=== PATIENT | female | born 1970 | race Caucasian/White ===

== ENCOUNTER 2016-11-27 12:49 | Outpatient (CLI) | payer BC ==
--- NOTE | 2016-12-06 16:21 | Mammography Report ---
DIGITAL SCREENING MAMMOGRAM: 11/27/2016 CLINICAL INDICATION: A 45-year-old with history of late childbearing for screening. COMPARISON: 09/2013 TECHNIQUE: Routine CC and MLO projections as well as bilateral laterally exaggerated craniocaudal vi ews were obtained of the breasts. FINDINGS: Parenchymal tissue within both breasts is heterogeneously dense, which may lower the sensi tivity of mammography; however, there are no dominant masses, suspicious microcalcifications, or seco ndary signs of malignancy. In comparison to the previous studies, there are no significant changes. ASSESSMENT: NO MAMMOGRAPHIC EVIDENCE OF MALIGNANCY. NO SIGNIFICANT INTERVAL CHANGES. RECOMMENDATION: Screening mammography is recommended annually. BIRADS category 1 - negative. STANDARD QUALIFYING STATEMENTS 1. This examination was reviewed with the aid of Computed-Aided Detection (CAD). 2. A negative or benign imaging report should not delay biopsy if clinically suspicious findings are present. Consider surgical consultation if warranted. More than 5% of cancers are not identified b y imaging. 3. Dense breasts may obscure an underlying neoplasm. JOB #: [id number] EXT JOB #:[id number]
== END 2016-11-27 12:50 | disposition home or self-care (01) ==
LOC: DI 12:49
PROVIDERS: ATTEND Family Medicine
DX: Z12.31 Encounter for screening mammogram for malignant neoplasm of breast (principal)
CPT/HCPCS: 77067

== ENCOUNTER 2018-01-10 11:00 | Outpatient (CLI) | payer BC ==
--- NOTE | 2018-01-10 16:52 | XRAY Report ---
Procedure Date: 01/10/2018 Accession Number: [id number] / [id number] Procedure: XR - Ankle 3 View LT CPT Code: FULL RESULT: EXAM: Ankle 3 View LT DATE: 01/10/2018 11:21 AM CLINICAL HISTORY: L ANKLE /FOOT PAIN..INJURY COMPARISON: None. TECHNIQUE: 3 views. FINDINGS: Bones: Normal. No fractures or bone lesions. Joints: Normal. No tibiotalar joint effusion. No subluxations. The ankle mortise is symmetric. Soft Tissues: Normal. No soft tissue swelling. IMPRESSION: Normal ankle radiography. RADIA
--- NOTE | 2018-01-10 17:00 | XRAY Report ---
Procedure Date: 01/10/2018 Accession Number: [id number] / [id number] Procedure: XR - Foot 3 View LT CPT Code: FULL RESULT: EXAM: Foot 3 View LT DATE: 01/10/2018 11:06 AM CLINICAL HISTORY: L ANKLE /FOOT PAIN..INJURY COMPARISON: None. TECHNIQUE: 3 views. FINDINGS: Bones: Somewhat well corticated bone fragment superior to the proximal margin of the navicular in conjunction with questionable cortical irregularity of the proximal navicular seen on the oblique view only is felt to represent os supra naviculare but should be correlated to point tenderness in this region given history of ankle and foot pain. Otherwise, there is no fracture or dislocation and soft tissues are unremarkable. IMPRESSION: No definite acute fracture or dislocation. Recommend palpation of the dorsum of the foot at the talonavicular interval for focal point tenderness as described. RADIA
== END 2018-01-10 11:01 | disposition home or self-care (01) ==
LOC: DI 11:00
PROVIDERS: ATTEND Nurse Practitioner Family
DX: S99.912A Unspecified injury of left ankle, initial encounter (principal)

== ENCOUNTER 2018-07-31 09:57 | Outpatient (CLI) | payer BC ==
--- NOTE | 2018-07-31 12:45 | XRAY Report ---
Reason: Pain in left heel Procedure Date: 07/31/2018 Accession Number: [id number] / [id number] Procedure: XR - Foot 3 View LT CPT Code: FULL RESULT: EXAM: LEFT FOOT RADIOGRAPHY EXAM DATE: 07/31/2018 10:32 AM. CLINICAL HISTORY: Pain in left heel. COMPARISON: FOOT 3 VIEW LT 01/10/2018 11:13 AM. TECHNIQUE: 3 views. FINDINGS: Bones: Normal. No fractures or bone lesions. No significant calcaneal spurring. Joints: Normal. No subluxations. Soft Tissues: Nonspecific soft tissue swelling adjacent to the fifth MTP joint similar to the prior exam. No appreciable abnormalities of the soft tissues of the heel. IMPRESSION: Normal foot radiography. RADIA
== END 2018-07-31 09:58 | disposition home or self-care (01) ==
LOC: DI 09:57
PROVIDERS: ATTEND Nurse Practitioner Family
DX: M79.672 Pain in left foot (principal)

== ENCOUNTER 2019-06-30 08:04 | Outpatient (CLI) | payer BC ==
--- NOTE | 2019-07-01 13:08 | Mammography Report ---
Reason: ROUTINE MAMMO Procedure Date: 06/30/2019 Accession Number: [id number] / [id number] Procedure: LIAT - Screening Mammo w/Alexander CPT Code: Final Report FULL RESULT: EXAM: Screening Mammo w/Alexander DATE: 06/30/2019 8:53 AM CLINICAL HISTORY: The patient is an asymptomatic 45-year-old female. Late childbearing. No reported personal nor family history of breast cancer. TECHNIQUE: (B) - Bilateral CC, laterally exaggerated CC, MLO views were obtained. Note: Positioning is limited by patient tolerance. COMPARISON: 11/27/2016 10/12/2013 PARENCHYMAL PATTERN: (D) - The breasts demonstrate heterogeneously dense fibroglandular parenchyma bilaterally. FINDINGS: The pattern of asymmetry is stable given positional differences. There are no suspicious masses, calcifications, or areas of distortion. IMPRESSION: Negative examination. BI-RADS category 1. RECOMMENDATION: (ANNUAL) - Recommend routine annual screening mammography. BI-RADS CATEGORY: (1) - Negative. STANDARD QUALIFYING STATEMENTS: A negative or benign imaging report should not preclude biopsy if clinically suspicious findings are present. Dense breasts may obscure an underlying neoplasm. This examination was reviewed with the aid of 3D breast imaging (tomosynthesis).
== END 2019-06-30 08:05 | disposition home or self-care (01) ==
LOC: DI 08:04
PROVIDERS: ATTEND Family Medicine
DX: Z12.31 Encounter for screening mammogram for malignant neoplasm of breast (principal)
CPT/HCPCS: 77063; 77067

== ENCOUNTER 2019-12-14 07:59 | Outpatient (CLI) | payer BC ==
--- NOTE | 2019-12-14 10:02 | CT Report ---
PROCEDURE: Sinuses INDICATIONS: HEADACHE TECHNIQUE: Noncontrast 3.0 mm axial images acquired from the frontal sinuses to the mid-sella, with coronal and sagittal reformats. For radiation dose reduction, the following was used: automated exposure control , adjustment of mA and/or kV according to patient size. COMPARISON: None. FINDINGS: Image quality: Excellent. Sinuses: There is minimal bilateral scattered maxillary, frontal and sphenoid mucosal thickening. Ve ry minimal ethmoid mucosal thickening is present. Ostiomeatal Complexes: Ostiomeatal complexes are patent. Miscellaneous: Visualized intra-orbital contents are normal. There is aeration of the vertical conch a of the left middle turbinate. The left middle and inferior turbinates are mildly hypertrophied comp ared to the right of uncertain clinical significance. No paradoxical turbinates are identified. No na nan septal deviation. IMPRESSION: 1. Minimal scattered mucosal thickening as above. 2. Ostiomeatal complexes are patent. Reviewed by: Dinora Workman MD on 12/14/2019 10:00 AM PDT Approved by: Dinora Workman MD on 12/14/2019 10:00 AM PDT Station ID: [id number]
== END 2019-12-14 08:00 | disposition home or self-care (01) ==
LOC: DI 07:59
PROVIDERS: ATTEND Nurse Practitioner Family
DX: J34.89 Other specified disorders of nose and nasal sinuses (principal)
CPT/HCPCS: 70486

== ENCOUNTER 2020-05-30 16:26 | Outpatient (CLI) | payer BC ==
--- NOTE | 2020-05-30 17:04 | XRAY Report ---
PROCEDURE: Foot 3 View LT INDICATIONS: PAIN IN LEFT FOOT TECHNIQUE: 3 views of the foot were acquired. COMPARISON: 07/31/2018 FINDINGS: Bones: No fractures or dislocations. No suspicious bony lesions. Soft tissues: No tibiotalar joint effusion. Achilles tendon appears normal. IMPRESSION: No finding to explain patient's symptoms. No significant changes from previous study. Reviewed by: Sduarshan Hsieh MD on 05/30/2020 4:02 PM [facility] Approved by: Sudarshan Hsieh MD on 05/30/2020 4:02 PM [facility] Station ID: [id number]
== END 2020-05-30 16:27 | disposition home or self-care (01) ==
LOC: DI 16:26
PROVIDERS: ATTEND Physician Assistant
DX: M79.672 Pain in left foot (principal)

== ENCOUNTER 2022-03-20 13:34 | Outpatient (CLI) | payer BC ==
--- NOTE | 2022-03-20 16:10 | XRAY Report ---
PROCEDURE: Lumbar Spine 2 View INDICATIONS: LOW BACK PAIN TECHNIQUE: 2 views of the lumbar spine were acquired. COMPARISON: None. FINDINGS: Bones: S shaped thoracolumbar scoliosis noted with lower lumbar spine instrumentation. Right ovary co mponent noted. Vertebral body height is within normal limits. The lower lumbar spine arthropathy and disc space narrowing present. Soft tissues: Overlying bowel gas pattern is normal. No suspicious soft tissue calcifications. IMPRESSION: Advanced S shaped thoracolumbar scoliosis associated with facet arthropathy Reviewed by: Omar Munroe MD on 03/20/2022 3:09 PM [facility] Approved by: Omar Munroe MD on 03/20/2022 3:09 PM [facility] Station ID: [id number]
== END 2022-03-20 13:35 | disposition home or self-care (01) ==
LOC: DI 13:34
PROVIDERS: ATTEND Physician Assistant
DX: M47.816 Spondylosis without myelopathy or radiculopathy, lumbar region (principal)

== ENCOUNTER 2022-04-03 11:15 | Outpatient (CLI) | payer BC ==
--- NOTE | 2022-04-04 09:08 | Mammography Report ---
BILATERAL DIGITAL SCREENING MAMMOGRAM 3D/2D: 04/03/2022 CLINICAL: Routine screening. Comparison is made to exams dated: 06/30/2019 mammogram, 11/27/2016 mammogram, and 10/01/2013 mammogram - [facility]. Both breasts are heterogeneously dense, which may obscure small masses (category c / 51-75% glandula r tissue). No significant masses, calcifications, or other findings are seen in either breast. There has been no significant interval change. IMPRESSION: NEGATIVE There is no mammographic evidence of malignancy. A 1 year screening mammogram is recommended. Based on the Tyrer Cuzick model (a risk assessment model) the patients lifetime risk is 14.3% and he r 10 year risk is 3.2%. According to the ACR, ACS, and NCCN guidelines, an annual breast MRI exam kareem ng with mammogram is recommended if the patients lifetime risk is 20% or greater. This exam was interpreted at Station ID: [id number]. NOTE: For mammograms, a report in lay terms will be sent to the patient. Approximately 15% of breast malignancies will not be visualized mammographically. In the management of a palpable breast mass, a negative mammogram must not discourage biopsy of a clinically suspicious lesion. Electronically Signed By: Sandeep cordon/penандрей:04/03/2022 17:20:48 ACR BI-RADS Category 1: Negative 3341F PARENCHYMAL PATTERN: (D) - The breast(s) demonstrate(s) heterogeneously dense fibroglandular mina ma. BI-RADS CATEGORY: (1) - 1 RECOMMENDATION: (ANNUAL) - Recommend routine annual screening mammography. [id number] 1 year screening LATERALITY: (B)
== END 2022-04-03 11:16 | disposition home or self-care (01) ==
LOC: DI 11:15
PROVIDERS: ATTEND Physician Assistant
DX: Z12.31 Encounter for screening mammogram for malignant neoplasm of breast (principal)